=== PATIENT | female | born 1950 | race Hispanic/Latino ===

== ENCOUNTER 2022-02-10 12:38 | Inpatient (IN) | payer MEDICARE, OTHER ==
[~2022-02-10] VITALS: Ht 162.6 cm; Wt 85.3 kg
[~2022-02-10 12:38] MED LIST: SODIUM CHLORIDE FLUSH 10 ML SYR IV PRN
[2022-02-10] MEDS ORDERED: ASPIRIN 325 MG TAB PO ONE (13:00)
[2022-02-10] MEDS ORDERED: DILTIAZEM HCL 5 MG/ML 5 ML VIAL IV STA (13:00)
[2022-02-10] MEDS: SODIUM CHLORIDE 0.9% 1000ML 1,000 ML IV SCH (13:21)
[2022-02-10 13:39] LABS: BASOPHILS % 0.4 % (0.0-1.0); EOSINOPHILS % 1.5 % (0.0-6.0); HEMATOCRIT 32.7 % (34.2-44.1); HEMOGLOBIN 10.3 g/dL (12.0-16.0); LYMPHOCYTES # (AUTO) 0.9 (1.0-3.2); LYMPHOCYTES % 32.4 % (18.0-39.1); MEAN CORPUSCULAR HEMOGLOBIN 28.9 pg (28-32); MEAN CORPUSCULAR HGB CONC 31.5 g/dL (31-35); MEAN CORPUSCULAR VOLUME 91.9 fL (81-99); MONOCYTES # (AUTO) 0.3 (0.2-0.8); MONOCYTES % 10.5 % (4.4-11.3); NEUTROPHILS # (AUTO) 1.5 (2.1-6.9); NEUTROPHILS % 54.8 % (38.7-80.0); PLATELET COUNT 121 x10e3/uL (140-360); RED BLOOD COUNT 3.56 x10e6/uL (3.6-5.1); RED CELL DISTRIBUTION WIDTH 13.7 % (11.7-14.4)
[2022-02-10 13:42] LABS: INR 1.15; PARTIAL THROMBOPLASTIN TIME 28.8 seconds (23.8-35.5); PROTHROMBIN TIME 15.7 seconds (11.9-14.5)
[2022-02-10 13:51] LABS: ALBUMIN 3.9 g/dL (3.5-5.0); ALBUMIN/GLOBULIN RATIO 1.1 (0.8-2.0); ANION GAP 17.2 mmol/L (8-16); CALCIUM 9.3 mg/dL (8.4-10.2); CREATININE, SERUM 0.82 mg/dL (0.57-1.11); POTASSIUM 4.2 mmol/L (3.5-5.1)
[2022-02-10 14:42] LABS: AMPHETAMINES SCREEN,URINE NEGATIVE (NEGATIVE); BENZODIAZEPINES SCREEN,URINE NEGATIVE (NEGATIVE); CLARITY,URINE CLEAR (CLEAR); COLOR,URINE YELLOW (YELLOW); KETONES,URINE NEGATIVE (NEGATIVE); LEUKOCYTE ESTERASE ,URINE NEGATIVE (NEGATIVE); NITRITE,URINE NEGATIVE (NEGATIVE); PHENCYCLIDINE SCREEN,URINE NEGATIVE (NEGATIVE); PROTEIN,URINE DIPSTICK NEGATIVE (NEGATIVE); URINE UROBILINOGEN 1 mg/dL (0.2 - 1)
[2022-02-10 14:53] LABS: BACTERIA,URINE FEW /HPF; EPITHELIAL CELLS,URINE RARE /LPF; WBC,URINE (MAN) 0-5 /HPF (0-5)
[2022-02-10] MEDS: ENOXAPARIN SODIUM INJ 100 MG/ML SYR SC SCH (16:23)
[2022-02-10] MEDS ORDERED: METFORMIN HCL500 MG PO (16:24)
[2022-02-10] MEDS ORDERED: ASPIRIN CHEW81 MG PO (16:25)
[2022-02-10] MEDS ORDERED: LOSARTAN POTASS50 MG PO (16:26)
[2022-02-10] MEDS ORDERED: SIMVASTATIN20 MG PO (16:26)
[2022-02-10] MEDS ORDERED: OMEPRAZOLE20 MG (16:27)
[2022-02-10] MEDS ORDERED: GLIMEPIRIDE2 MG PO (16:28)
[2022-02-10] MEDS ORDERED: FOLIC ACID0.4 MG PO (16:29)
[2022-02-10] MEDS ORDERED: ONDANSETRON HCL INJ 2MG/ML 2ML 2 MG/ML VIAL IV PRN (16:30)
[2022-02-10] MEDS ORDERED: DEXTROSE 50% SYRINGE 50 ML IV PRN (16:30)
[2022-02-10] MEDS: INSULIN REGULAR, HUMAN 100 UNIT/1 ML SQ SCH ×2 (16:30→21:08)
[2022-02-10] MEDS ORDERED: ASPIRIN 81 MG CHEW TAB PO ONE (16:30)
[2022-02-10] MEDS ORDERED: METOPROLOL TART50 MG PO (16:35)
[2022-02-10 18:00] VITALS: BP 154/84
[2022-02-10 18:26] VITALS: BP 154/84
[2022-02-10] MEDS ORDERED: METOPROLOL TARTRATE INJ 1 MG/ML VIAL IV PRN (19:30)
[2022-02-10] MEDS ORDERED: POLYETHYLENE GLYCOL 3350 17 GM PACK PO PRN (19:30)
[2022-02-10] MEDS ORDERED: ACETAMINOPHEN 325 MG TAB PO PRN (19:30)
[2022-02-10 20:00] VITALS: BP 134/81
[2022-02-10] MEDS: SIMVASTATIN 20 MG TAB PO SCH (21:05)
[2022-02-11] VITALS (8 sets, daily range): BP systolic 127–149; BP diastolic 69–79
[2022-02-11] MEDS: SODIUM CHLORIDE 0.9% 1000ML 1,000 ML IV SCH (06:15)
[2022-02-11] MEDS: ENOXAPARIN SODIUM INJ 100 MG/ML SYR SC SCH ×2 (06:16→17:54)
[2022-02-11 06:18] LABS: EOSINOPHILS # (AUTO) 0.1 (0.0-0.4); EOSINOPHILS % 2.6 % (0.0-6.0); HEMATOCRIT 28.7 % (34.2-44.1); HEMOGLOBIN 9.3 g/dL (12.0-16.0); LYMPHOCYTES # (AUTO) 0.8 (1.0-3.2); MEAN CORPUSCULAR HEMOGLOBIN 28.5 pg (28-32); MEAN CORPUSCULAR HGB CONC 32.4 g/dL (31-35); MONOCYTES # (AUTO) 0.2 (0.2-0.8); NEUTROPHILS # (AUTO) 0.8 (2.1-6.9); NEUTROPHILS % 40.9 % (38.7-80.0); PLATELET COUNT 109 x10e3/uL (140-360); RED BLOOD COUNT 3.26 x10e6/uL (3.6-5.1); RED CELL DISTRIBUTION WIDTH 13.8 % (11.7-14.4)
[2022-02-11 06:45] LABS: ALBUMIN 3.4 g/dL (3.5-5.0); ALBUMIN/GLOBULIN RATIO 1.1 (0.8-2.0); ANION GAP 13.7 mmol/L (8-16); CALCIUM 8.4 mg/dL (8.4-10.2); CREATININE, SERUM 0.66 mg/dL (0.57-1.11); POTASSIUM 3.7 mmol/L (3.5-5.1)
[2022-02-11 06:46] LABS: CHOL/HDL RATIO 4.2 (3.0-3.6); MAGNESIUM 1.5 MG/DL (1.3-2.1); PHOSPHORUS 3.3 MG/DL (2.3-4.7)
[2022-02-11 06:54] LABS: THYROID STIMULATING HORMONE 4.754 uIU/mL (0.350-4.940)
[2022-02-11 07:54] LABS: CREATINE KINASE MB 1.8 ng/mL (0-5.0)
[2022-02-11] MEDS: ASCORBIC ACID 500 MG TAB PO SCH ×2 (08:52→17:47)
[2022-02-11] MEDS: GLIMEPIRIDE 2 MG TAB PO SCH (08:52)
[2022-02-11] MEDS: PANTOPRAZOLE SOD 40 MG TABEC PO SCH (08:53)
[2022-02-11] MEDS: FOLIC ACID 1 MG TAB PO SCH (08:53)
[2022-02-11] MEDS: LOSARTAN POTASSIUM 25 MG TAB PO SCH (08:53)
[2022-02-11] MEDS: CHOLECALCIFEROL 400 UNIT TAB PO SCH (08:53)
[2022-02-11] MEDS: DOCUSATE SODIUM 100 MG CAP PO SCH ×2 (08:54→17:48)
[2022-02-11] MEDS: METOPROLOL TARTRATE 50 MG TAB PO SCH ×2 (08:54→17:48)
[2022-02-11] MEDS: ZINC SULFATE 50 MG CAP PO SCH ×2 (09:00→17:48)
[2022-02-11] MEDS: INSULIN REGULAR, HUMAN 100 UNIT/1 ML SQ SCH ×4 (09:02→21:00)
[2022-02-11 09:13] LABS: EOSINOPHILS % (MANUAL) 3 % (0-7); LYMPHOCYTES % (MANUAL) 44 % (19-48); MONOCYTES % (MANUAL) 9 % (3.4-9.0); NEUTROPHILS % (MANUAL) 44 % (40-74); PLATELET ESTIMATE MODERATELY DECREASED; PLATELET MORPHOLOGY COMMENT NORMAL; RBC MORPHOLOGY COMMENT NORMAL
[2022-02-11] MEDS: AMIODARONE HCL 200 MG TAB PO SCH (12:23)
[2022-02-11 14:53] LABS: CREATINE KINASE MB 1.8 ng/mL (0-5.0)
[2022-02-12] VITALS (8 sets, daily range): BP systolic 130–172; BP diastolic 49–72
[2022-02-12] MEDS: SIMVASTATIN 20 MG TAB PO SCH ×2 (00:07→20:43)
[2022-02-12 05:07] LABS: EOSINOPHILS % 2.3 % (0.0-6.0); HEMATOCRIT 27.8 % (34.2-44.1); HEMOGLOBIN 9.1 g/dL (12.0-16.0); LYMPHOCYTES # (AUTO) 0.8 (1.0-3.2); LYMPHOCYTES % 46.3 % (18.0-39.1); MEAN CORPUSCULAR HGB CONC 32.7 g/dL (31-35); MEAN CORPUSCULAR VOLUME 88.5 fL (81-99); MONOCYTES # (AUTO) 0.2 (0.2-0.8); MONOCYTES % 11.9 % (4.4-11.3); NEUTROPHILS # (AUTO) 0.7 (2.1-6.9); NEUTROPHILS % 39.5 % (38.7-80.0); PLATELET COUNT 102 x10e3/uL (140-360); RED BLOOD COUNT 3.14 x10e6/uL (3.6-5.1); RED CELL DISTRIBUTION WIDTH 13.8 % (11.7-14.4)
[2022-02-12] MEDS: ENOXAPARIN SODIUM INJ 100 MG/ML SYR SC SCH ×2 (05:44→17:38)
[2022-02-12 05:51] LABS: ALBUMIN 3.3 g/dL (3.5-5.0); ALBUMIN/GLOBULIN RATIO 1.1 (0.8-2.0); ANION GAP 14.6 mmol/L (8-16); CALCIUM 8.5 mg/dL (8.4-10.2); CREATININE, SERUM 0.66 mg/dL (0.57-1.11); POTASSIUM 3.6 mmol/L (3.5-5.1)
[2022-02-12 07:57] LABS: EOSINOPHILS % (MANUAL) 1 % (0-7); LYMPHOCYTES % (MANUAL) 43 % (19-48); MONOCYTES % (MANUAL) 5 % (3.4-9.0); NEUTROPHILS % (MANUAL) 51 % (40-74)
[2022-02-12 07:58] LABS: PLATELET ESTIMATE MODERATELY DECREASED; PLATELET MORPHOLOGY COMMENT NORMAL; RBC MORPHOLOGY COMMENT NORMAL
[2022-02-12] MEDS: INSULIN REGULAR, HUMAN 100 UNIT/1 ML SQ SCH ×4 (08:40→20:48)
[2022-02-12] MEDS: ZINC SULFATE 50 MG CAP PO SCH ×2 (09:05→16:13)
[2022-02-12] MEDS: PANTOPRAZOLE SOD 40 MG TABEC PO SCH (09:05)
[2022-02-12] MEDS: DOCUSATE SODIUM 100 MG CAP PO SCH ×2 (09:05→16:13)
[2022-02-12] MEDS: AMIODARONE HCL 200 MG TAB PO SCH (09:05)
[2022-02-12] MEDS: GLIMEPIRIDE 2 MG TAB PO SCH (09:05)
[2022-02-12] MEDS: METOPROLOL TARTRATE 50 MG TAB PO SCH ×2 (09:06→16:14)
[2022-02-12] MEDS: LOSARTAN POTASSIUM 25 MG TAB PO SCH (09:06)
[2022-02-12] MEDS: FOLIC ACID 1 MG TAB PO SCH (09:06)
[2022-02-12] MEDS: CHOLECALCIFEROL 400 UNIT TAB PO SCH (09:07)
[2022-02-12] MEDS: ASCORBIC ACID 500 MG TAB PO SCH ×2 (09:07→16:13)
[2022-02-12] MEDS ORDERED: ONDANSETRON HCL 4 MG ORAL DISINTEGRATING TAB PO PRN (09:30)
[2022-02-13] VITALS: BP 159/75
[2022-02-13 04:00] VITALS: BP 154/76
[2022-02-13] MEDS: ENOXAPARIN SODIUM INJ 100 MG/ML SYR SC SCH (05:41)
[2022-02-13 07:43] LABS: BASOPHILS % 0.5 % (0.0-1.0); EOSINOPHILS % 1.5 % (0.0-6.0); HEMATOCRIT 30.7 % (34.2-44.1); HEMOGLOBIN 9.8 g/dL (12.0-16.0); LYMPHOCYTES # (AUTO) 0.8 (1.0-3.2); LYMPHOCYTES % 40.8 % (18.0-39.1); MEAN CORPUSCULAR HGB CONC 31.9 g/dL (31-35); MEAN CORPUSCULAR VOLUME 90.8 fL (81-99); MONOCYTES # (AUTO) 0.2 (0.2-0.8); MONOCYTES % 11.7 % (4.4-11.3); NEUTROPHILS # (AUTO) 0.9 (2.1-6.9); NEUTROPHILS % 45.5 % (38.7-80.0); PLATELET COUNT 107 x10e3/uL (140-360); RED BLOOD COUNT 3.38 x10e6/uL (3.6-5.1); RED CELL DISTRIBUTION WIDTH 13.5 % (11.7-14.4)
[2022-02-13 08:00] VITALS: BP 133/61
[2022-02-13 08:09] LABS: ANION GAP 12.9 mmol/L (8-16); CALCIUM 8.6 mg/dL (8.4-10.2); CREATININE, SERUM 0.67 mg/dL (0.57-1.11); POTASSIUM 3.9 mmol/L (3.5-5.1)
[2022-02-13 08:10] VITALS: BP 133/61
[2022-02-13] MEDS ORDERED: ELIQUIS2.5 MG PO (08:13)
[2022-02-13] MEDS ORDERED: AMIODARONE HCL200 MG PO (08:13)
[2022-02-13] MEDS: CHOLECALCIFEROL 400 UNIT TAB PO SCH (08:45)
[2022-02-13] MEDS: PANTOPRAZOLE SOD 40 MG TABEC PO SCH (08:45)
[2022-02-13] MEDS: AMIODARONE HCL 200 MG TAB PO SCH (08:45)
[2022-02-13] MEDS: FOLIC ACID 1 MG TAB PO SCH (08:46)
[2022-02-13] MEDS: DOCUSATE SODIUM 100 MG CAP PO SCH (08:46)
[2022-02-13] MEDS: ASCORBIC ACID 500 MG TAB PO SCH (08:46)
[2022-02-13] MEDS: GLIMEPIRIDE 2 MG TAB PO SCH (08:46)
[2022-02-13] MEDS: ZINC SULFATE 50 MG CAP PO SCH (08:46)
[2022-02-13] MEDS: LOSARTAN POTASSIUM 25 MG TAB PO SCH (08:46)
[2022-02-13] MEDS: METOPROLOL TARTRATE 50 MG TAB PO SCH (08:47)
[2022-02-13] MEDS: INSULIN REGULAR, HUMAN 100 UNIT/1 ML SQ SCH (08:51)
[2022-02-13] MEDS ORDERED: APIXAB 2.5 MG TABLET PO SCH (09:00)
== END 2022-02-13 12:14 | disposition home or self-care (01) | DRG 308 ==
LOC: ER 13:00 → ERHOLD 16:23 → MED/SURG3 17:38 → OBSVTOIN 02-12 14:59
PROVIDERS: ADMIT Internal Medicine; ATTEND Internal Medicine
DX: I48.0 Paroxysmal atrial fibrillation (principal); U07.1 COVID-19; D61.818 Other pancytopenia; I24.8 Other forms of acute ischemic heart disease; Z79.01 Long term (current) use of anticoagulants; E11.65 Type 2 diabetes mellitus with hyperglycemia; D72.818 Other decreased white blood cell count; E11.69 Type 2 diabetes mellitus with other specified complication; Z85.831 Personal history of malignant neoplasm of soft tissue; K76.0 Fatty (change of) liver, not elsewhere classified; Z85.3 Personal history of malignant neoplasm of breast; Z85.89 Personal history of malignant neoplasm of other organs and systems; Z68.32 Body mass index [BMI] 32.0-32.9, adult; E66.09 Other obesity due to excess calories
CPT/HCPCS: 0223U; 36415; 71045; 80048; 80053; 80061; 80307; 81001; 82550; 82553; 82948; 83036; 83690; 83735; 84100; 84443; 84484; 85025; 85610; 85730; 93005; 93306; 96361; 99284; G0378; J1650; J1817; J7030

== ENCOUNTER 2024-05-22 15:20 | Emergency (ER) | payer MEDICARE ==
[~2024-05-22] VITALS: Ht 162.6 cm; Wt 85.3 kg
[~2024-05-22 15:20] MED LIST changes: +AMIODARONE HCL200 MG PO; +ASPIRIN CHEW81 MG PO; +ELIQUIS2.5 MG PO; +FOLIC ACID0.4 MG PO; +GLIMEPIRIDE2 MG PO; +LOSARTAN POTASS50 MG PO; +METFORMIN HCL500 MG PO; +METOPROLOL TART50 MG PO; +OMEPRAZOLE20 MG; +SIMVASTATIN20 MG PO; -SODIUM CHLORIDE FLUSH 10 ML SYR IV PRN
[2024-05-22 15:30] VITALS: PULSE 64; RESP 15; TEMP 98.1
[2024-05-22] MEDS ORDERED: NAPROXEN250 MG PO (17:41)
[2024-05-22 17:53] VITALS: BP 131/71; PULSE 62; RESP 16; TEMP 98; O2SAT 99
== END 2024-05-22 17:54 | disposition home or self-care (01) ==
LOC: ER 17:07
DX: S80.211A Abrasion, right knee, initial encounter (principal); S83.8X2A Sprain of other specified parts of left knee, initial encounter; S83.8X1A Sprain of other specified parts of right knee, initial encounter; W01.0XXA Fall on same level from slipping, tripping and stumbling without subsequent striking against object, initial encounter; Y93.01 Activity, walking, marching and hiking; Y92.89 Other specified places as the place of occurrence of the external cause; I10 Essential (primary) hypertension; E11.9 Type 2 diabetes mellitus without complications; E78.5 Hyperlipidemia, unspecified; Z85.3 Personal history of malignant neoplasm of breast
CPT/HCPCS: 99283